=== PATIENT | female | born 1970 | race Caucasian/White ===

== ENCOUNTER 2019-10-15 09:02 | Emergency (ER) | payer OTHER ==
[~2019-10-15] VITALS: Ht 154.9 cm; Wt 63.5 kg
[~2019-10-15 09:02] MED LIST: BACTRIM DS TAB1 EACH PO; MACROBID 100 M100 M1 PO; NOHOMEMEDICATIONS; NORCO 5-325 TA1 EACH PO; PYRIDIUM100 MG PO
[2019-10-15 10:02] LABS: BASOPHILS 0.3 % (0.0-2.0)
[2019-10-15 10:03] LABS: ABSOLUTE NEUTROPHILS 9.8 thou/uL (1.4-8.2); EOSINOPHILS 0.4 % (0.0-3.0); HEMATOCRIT 39.6 % (37.0-47.0); HEMOGLOBIN 13.6 gm/dL (12.0-15.0); LYMPHOCYTES 9.8 % (24.0-44.0); MCH 39.3 pg (26.0-34.0); MCHC 34.3 g/dL (28.0-37.0); MCV 114.8 fL (80.0-100.0); MONOCYTES 6.2 % (1.0-8.0); PLATELET COUNT 271 thou/uL (150-400); POLYS 83.3 % (36.0-66.0); RBC 3.45 mil/uL (4.20-5.00); RDW 14.9 % (10.5-14.5); WBC 11.8 thou/uL (4.0-11.0)
[2019-10-15 10:22] LABS: CALCIUM 9.1 mg/dL (8.5-10.1); CREATININE 0.4 mg/dL (0.6-1.0); POTASSIUM 3.1 mmol/L (3.5-5.1)
[2019-10-15 10:27] LABS: TOTAL BILIRUBIN 1.2 mg/dL (0.2-1.0); TOTAL PROTEIN 7.6 g/dL (6.4-8.2)
[2019-10-15 11:11] LABS: MACROCYTES 3+
[2019-10-15 11:44] LABS: URINE BILIRUBIN NEGATIVE (Negative); URINE BLOOD NEGATIVE (Negative); URINE CLARITY CLEAR; URINE COLOR YELLOW; URINE GLUCOSE-RANDOM* NEGATIVE (Negative); URINE KETONES 1+ (Negative); URINE LEUKOCYTES-REFLEX TRACE (Negative); URINE PROTEIN (DIPSTICK) NEGATIVE (Negative)
[2019-10-15 11:48] LABS: URINE NITRITE-REFLEX POSITIVE (Negative)
[2019-10-15 11:55] LABS: CASTS None Seen /LPF (None Seen); SQUAMOUS 4-10 Moderate /LPF (0-3)
[2019-10-15 11:56] LABS: BACTERIA-REFLEX >30 Many /HPF (None Seen); CRYSTALS None Seen /LPF (None Seen); URINE RBC None Seen /HPF (0-2); URINE WBC-REFLEX 0-5 Rare /HPF (0-5)
[2019-10-15 12:03] LABS: AMP/METHAMP Negative (Negative); BARBITURATES Negative (Negative); BENZODIAZEPINES Negative (Negative); COCAINE Negative (Negative); METHADONE Negative (Negative); OPIATES Negative (Negative); PCP Negative (Negative)
[2019-10-15] MEDS ORDERED: ONDANSETRON ODT8 MG PO (12:38)
[2019-10-15] MEDS ORDERED: TRAMADOL 50 MG50 MG PO (12:38)
[2019-10-15] MEDS ORDERED: POTASSIUM20 PO (12:38)
[2019-10-15 12:55] VITALS: BP 105/78
== END 2019-10-15 12:55 | disposition home or self-care (01) ==
LOC: ER 09:02
PROVIDERS: Emergency Medicine
DX: R10.84 Generalized abdominal pain (principal); K76.9 Liver disease, unspecified; R11.2 Nausea with vomiting, unspecified; E87.6 Hypokalemia; D53.9 Nutritional anemia, unspecified; F17.210 Nicotine dependence, cigarettes, uncomplicated; Z88.6 Allergy status to analgesic agent

== ENCOUNTER 2019-10-19 08:18 | Inpatient (IN) | payer OTHER ==
[~2019-10-19] VITALS: Ht 154.9 cm; Wt 67.6 kg
--- NOTE | ~2019-10-19 | HC ---
[facility] [place] [address] CONSULTATION Name: AMELIA MIR Room #: 201-P ADM IN ..#: [id number] Admission: 10/19/19 Attend Phys: Jr Mercedes MD Discharge: Date of : 66 Report #: [id number] THIS REPORT FOR: cc: [facility] - Luz family physician/PCP [place] - Luz family physician/PCP Chintan Adkins MD ~ CC: [facility] physician/PCP Jr Mercedes DATE OF SERVICE: 10/19/2019 HISTORY OF PRESENT ILLNESS: This 48-year-old female patient who was seen by me earlier today at the request of Emergency Room physician as well as admitting physician. I saw the patient, but no official consult was put until this evening and I could not put in the orders in. I saw the patient in the Emergency Room and she has indicated that she had persistent nausea and vomiting. She had an episode of diplopia. When she had diplopia, she had some blurred vision. She closed her 1 eye, then it became better. Now, she does not have any symptoms in that regard. She had a pretty persistent nausea and vomiting for some time. She says she drinks alcohol very rarely, but has drank alcohol in the past, but she still has a pretty significant macrocytosis in spite of the fact that her vitamin B12 is normal. Her AST and alkaline phosphatase is also high, but not very high. REVIEW OF SYSTEMS: Difficult to get in this patient. She has a history of nausea and vomiting. She had some poorly defined tingling and numbness. She also had some problem with balance. She also has GI abnormalities in the liver for which GI is being consulted and it is a hepatic lesion and they are working her up in that regard. This was a relevant 14-point review of system. PAST MEDICAL HISTORY: Negative for any stroke. FAMILY HISTORY: Negative for any early age stroke. SOCIAL HISTORY: She smokes. She says she has drank alcohol in the past, but blood picture is still consistent with alcohol intake. PHYSICAL EXAMINATION: The patient's examination indicates she is alert, responsive, able to follow simple and complex command. Speech looks intact. Cranial nerve examination on my examination looks okay. I was able to have reasonably good look at the fundus and that does look unremarkable, but has noted dilated pupil and has to be confirmed. Reflexes appeared to be diminished, but position sense is present. Her strength looks more or less okay, but she looks somewhat weak, but I do not know what her baseline is. She does need a PT, OT evaluation, which has already been ordered. Pulses are palpable. Cardiac and respiratory examination is unremarkable. Blood pressure [address] [address] CONSULTATION Name: MIRAMELIA Room #: 201-P ADM IN M.R.#: [id number] Admission: 10/19/19 Attend Phys: Jr Mercedes MD Discharge: Date of : 66 Report #: [id number] is 152/96, respirations 18, pulse is 106, temperature is 98.2. She did have a CT of the head, which was unremarkable. IMPRESSION: This patient had a persistent nausea, vomiting and she had a prior history of alcohol intake at least. She has ataxia. She needs to be given thiamine. I ordered 1 dose and I ordered at IV because she is getting some GI preparation, but it can be switched to oral, but she should continue that for about at least 5 days. We need to also exclude any posterior fossa pathology. I will initially get an MRI of the brain and MRA of the head without contrast, but depending upon that we may have to do with contrast also. I did discuss with her that some problem can occur with contrast including the allergic reaction as well as irreversible dermatological reaction and she understands that. She is okay if we need to do it later on. Thank you very much for this referral and the patient was discussed with multiple consultants including the hospitalist, who is admitting the patient and Emergency Room physician. By: [id number] Chintan Adkins MD /nt
[~2019-10-19 08:18] MED LIST changes: +ONDANSETRON ODT8 MG PO; +POTASSIUM20 PO; +TRAMADOL 50 MG50 MG PO
[2019-10-19 08:26] VITALS: BP 129/84
[2019-10-19 09:22] LABS: ABSOLUTE NEUTROPHILS 6.9 thou/uL (1.4-8.2); BASOPHILS 0.3 % (0.0-2.0); EOSINOPHILS 0.4 % (0.0-3.0); HEMATOCRIT 34.5 % (37.0-47.0); LYMPHOCYTES 11.3 % (24.0-44.0); MCH 39.2 pg (26.0-34.0); MCHC 34.6 g/dL (28.0-37.0); MCV 113.1 fL (80.0-100.0); MONOCYTES 7.3 % (1.0-8.0); PLATELET COUNT 241 thou/uL (150-400); POLYS 80.7 % (36.0-66.0); RBC 3.05 mil/uL (4.20-5.00); RDW 15.5 % (10.5-14.5); WBC 8.6 thou/uL (4.0-11.0)
[2019-10-19 09:29] LABS: CALCIUM 8.6 mg/dL (8.5-10.1); CREATININE 0.4 mg/dL (0.6-1.0); MAGNESIUM 1.5 mg/dL (1.8-2.4)
[2019-10-19 10:01] LABS: MACROCYTES 2+
[2019-10-19 12:24] LABS: ALBUMIN 2.6 g/dL (3.4-5.0); DIRECT BILIRUBIN 0.4 mg/dL (<0.1-0.2); TOTAL BILIRUBIN 0.8 mg/dL (0.2-1.0); TOTAL PROTEIN 6.7 g/dL (6.4-8.2)
[2019-10-19 15:43] LABS: URINE BLOOD NEGATIVE (Negative); URINE CLARITY CLEAR; URINE COLOR YELLOW; URINE GLUCOSE-RANDOM* NEGATIVE (Negative); URINE KETONES 2+ (Negative); URINE LEUKOCYTES-REFLEX TRACE (Negative); URINE NITRITE-REFLEX NEGATIVE (Negative); URINE PROTEIN (DIPSTICK) NEGATIVE (Negative)
[2019-10-19 15:49] LABS: ICTOTEST (BILI CONFIRMATORY) Negative (Negative); URINE BILIRUBIN NEGATIVE (Negative)
[2019-10-19 18:10] VITALS: BP 144/96
[2019-10-19 18:17] VITALS: BP 148/100
[2019-10-19 18:21] LABS: TSH 4.308 uIU/mL (0.358-3.740)
[2019-10-19 18:30] VITALS: BP 152/96
[2019-10-20 00:22] VITALS: BP 167/97
[2019-10-20 04:19] LABS: HEMATOCRIT 32.1 % (37.0-47.0); HEMOGLOBIN 10.7 gm/dL (12.0-15.0); MCH 38.8 pg (26.0-34.0); MCHC 33.3 g/dL (28.0-37.0); MCV 116.5 fL (80.0-100.0); RBC 2.75 mil/uL (4.20-5.00); RDW 15.1 % (10.5-14.5); WBC 7.8 thou/uL (4.0-11.0)
[2019-10-20 04:23] LABS: CALCIUM 7.6 mg/dL (8.5-10.1); CREATININE 0.4 mg/dL (0.6-1.0); MAGNESIUM 2.2 mg/dL (1.8-2.4); POTASSIUM 3.5 mmol/L (3.5-5.1)
[2019-10-20 04:44] VITALS: BP 144/91
--- NOTE | 2019-10-20 06:42 | NUR ---
ASSESSMENTS CHARTED, MEDS CHARTED GIVEN. PATIENT RESTING IN BED DURING SHIFT. PATIENT SCHEDULED TO DISCHARGE TO [facility] TODAY. PATIENT HAD ELEVATED BLOOD PRESSURE THIS MORNING. GAVE AM BLOOD PRESSURE MEDS EARLY. PATIENT HAD LARGE BOWEL MOVEMENT RIGHT BEFORE SHIFT CHANGE THIS AM. DENIED PAIN.
--- NOTE | 2019-10-20 06:46 | NUR ---
ASSESSMENTS CHARTED, MEDS CHARTED GIVEN. PATIENT ARRIVED JUST PRIOR TO SHIFT CHANGE. PATIENT WAS SETTLED AND ADMITTED INTO COMPUTER FROM THE ED. RESTING IN BED DURING SHIFT. UP TO BATHROOM WITH GAIT BELT AND ASSIST X 1. VERY UNSTEADY. MAINTENANCE FLUIDS GIVEN DURING SHIFT. DENIED PAIN EXCEPT PAINS RELATED TO AGE. PATIENT HAS BEEN NPO SINCE MIDNIGHT FOR EGD THIS AM. FALL PRECAUTIONS IN PLACE DURING SHIFT.
[2019-10-20 08:46] VITALS: BP 148/92
[2019-10-20 11:09] VITALS: BP 135/83
--- NOTE | 2019-10-20 14:37 | NUR ---
Patient admits with weakness N/V. Patient resides in basement, inlaws live on main floor of home. 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 She has no insurance. 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 She does not drive. She does not have health insurace. Discussed med[facility]ist will assist with eval for [place] medicaid. Patient reports she may need walker for home.
[2019-10-20 15:35] VITALS: BP 126/79
[2019-10-20 19:50] VITALS: BP 140/89
--- NOTE | 2019-10-20 20:05 | NUR ---
ASSUMED CARE AT CHANGE OF SHIFT. ALERT X4, FROM HOME WITH . DENIES PAIN, DENIES SOB, UP WITH WALKER AX1, EGD COMPLETED WITH SMALL ULCER NOTED. PT LIKELY TO DC TOMORROW TO HOME WITH A WALKER PER CM. NSR ON TELE. CALLS FOR ASSSISTANCE.
--- NOTE | 2019-10-21 01:17 | NUR ---
ASSESSMENTS CHARTED, MEDS CHARTED GIVEN. PATIENT MUCH STRONGER AND MORE STABLE TONIGHT THAN LAST. EGD WAS DONE DURING THE DAY AND SMALL ULCERS WERE FOUND. EDUCATIONAL SUPPORT FOR ULCER CARE AND PREVENTION. FALL PRECAUTIONS IN PLACE DURING SHIFT, DENIED PAIN. PLAN OF CARE IS TO RETURN HOME IN THE AM.
[2019-10-21 03:30] VITALS: BP 147/80
[2019-10-21 05:58] LABS: HEMATOCRIT 31.3 % (37.0-47.0); HEMOGLOBIN 10.5 gm/dL (12.0-15.0); MCH 38.4 pg (26.0-34.0); MCHC 33.4 g/dL (28.0-37.0); RBC 2.73 mil/uL (4.20-5.00); WBC 6.2 thou/uL (4.0-11.0)
[2019-10-21 06:44] LABS: CALCIUM 8.4 mg/dL (8.5-10.1); CREATININE 0.3 mg/dL (0.6-1.0); MAGNESIUM 1.7 mg/dL (1.8-2.4); POTASSIUM 3.6 mmol/L (3.5-5.1)
[2019-10-21 08:00] VITALS: BP 147/97
[2019-10-21 09:46] LABS: % SATURATION 70 % (20-39); IRON 90 ug/dL (50-170); TIBC 128 ug/dL (250-450)
[2019-10-21 10:04] LABS: ALBUMIN 2.7 g/dL (3.4-5.0); CALCIUM 9.1 mg/dL (8.5-10.1); CREATININE 0.4 mg/dL (0.6-1.0); POTASSIUM 3.7 mmol/L (3.5-5.1); TOTAL BILIRUBIN 0.6 mg/dL (0.2-1.0); TOTAL PROTEIN 6.9 g/dL (6.4-8.2)
--- NOTE | 2019-10-21 14:06 | P ---
[facility] [place] [address] PROCEDURE REPORT Name: AMELIA MIR Christopher Room #: 201-P ADM IN M.R.#: [id number] Admission: 10/19/19 Attend Phys: Jr Mercedes MD Discharge: Date of : 66 Report #: [id number] THIS REPORT FOR: cc: [facility] - No family physician/PCP FAM - No family physician/PCP Bereket Olson MD ~ CC: [facility] physician/PCP Jr Adkins MD DATE OF SERVICE: 10/20/2019 PROCEDURE PERFORMED: Upper endoscopy with biopsies. HISTORY OF PRESENT ILLNESS: The patient is a 48-year-old female who was admitted yesterday for abdominal pain, primarily right upper quadrant, also nausea, vomiting, and diarrhea. She was seen in the Emergency Room on 10/15/2019 with similar symptoms. A CT scan of the abdomen at that time showed an abnormal liver, likely geographic fatty infiltration. She has had a previous cholecystectomy. A repeat CT was done yesterday, 3-phase, which showed normal CT angiogram of the abdomen and pelvis, no signs of mesenteric artery stenosis or ischemia, large area of geographic low density in the liver is similar since previous study, nonspecific, although suspect this is due to fatty infiltration, less likely tumor or unusual hepatitis presentation. There is a mild diffuse wall thickening throughout the colon, felt to be more artifactual from non-distention. No previous history of endoscopy. Plan is for EGD. DESCRIPTION OF PROCEDURE: The risks and benefits of the procedure were explained to the patient, those risks including but not limited to bleeding, perforation and the risk of sedation. She understood these risks and gave informed consent. Sedation was given using propofol per anesthesia. Next, using a standard Olympus upper endoscope, the scope was placed in the patient's mouth and advanced under direct vision through the esophagus, stomach, and into the second portion of the duodenum. The esophagus was normal throughout. The GE junction was normal. In the gastric body, there was a mild gastritis. In the gastric antrum, a single 5 mm clean white based ulcer was noted with mild gastritis also in the gastric antrum. Biopsies were obtained to rule out H. pylori. The duodenal bulb and first portion were normal. In the second portion, a small possible polyp was noted. This was 4 mm in size and removed with cold forceps. Also obtained today were random biopsies of the duodenum to rule out the possibility of celiac sprue. At this point, the scope was then withdrawn and the procedure terminated. The patient tolerated the procedure well. IMPRESSION: 1. Gastritis with gastric ulcer. [address] [address] PROCEDURE REPORT Name: AMELIA MIR Room #: 201-P [facility] IN ..#: [id number] Admission: 10/19/19 Attend Phys: Jr Mercedes MD Discharge: Date of : 66 Report #: [id number] 2. Small duodenal polyp. 3. Otherwise, normal upper endoscopy. RECOMMENDATIONS: 1. Await biopsy results. 2. We will start daily PPI therapy. 3. We will advance diet as tolerated. 4. I explained CT 3-phase results to the patient regarding likely fatty infiltration of the liver, although this can cause elevation in liver function tests. Doubt, this would be a cause of her other symptoms of nausea, vomiting, or abdominal pain. Her bilirubin is normal. Mild elevation in the AST and the alkaline phosphatase. We will continue to monitor her liver function tests. Thank you for allowing me to participate in her care. <ELECTRONICALLY SIGNED> By: Bereket Olson MD 10/21/19 [id number] Bereket Olson MD /nt
[2019-10-21] MEDS ORDERED: MIRALAX17 GM PO (16:32)
[2019-10-21] MEDS ORDERED: PROTONIX 20 MG20 MG PO (16:33)
[2019-10-21] MEDS ORDERED: VITAMIN B-1100 M2 PO (16:33)
[2019-10-21] MEDS ORDERED: FOLIC ACID1 MG PO (16:33)
[2019-10-21] MEDS ORDERED: VITAMIN B-125000 MCG SUBLING (16:34)
[2019-10-21] MEDS ORDERED: CEFUROXIME500 MG PO (16:38)
[2019-10-21 16:57] VITALS: BP 147/97
== END 2019-10-21 18:15 | disposition home or self-care (01) | DRG 383 ==
LOC: ER 08:18 → EROBS 16:01 → 2N 18:42
PROVIDERS: Emergency Medicine; ADMIT Internal Medicine; ATTEND Internal Medicine
PROC: 0DB98ZZ Excision of Duodenum, Via Natural or Artificial Opening Endoscopic (ICD-10-PCS; principal; 2019-10-20)
PROC: 0DB68ZX Excision of Stomach, Via Natural or Artificial Opening Endoscopic, Diagnostic (ICD-10-PCS; principal; 2019-10-20)
DX: K25.9 Gastric ulcer, unspecified as acute or chronic, without hemorrhage or perforation (principal); E43 Unspecified severe protein-calorie malnutrition; N39.0 Urinary tract infection, site not specified; K29.70 Gastritis, unspecified, without bleeding; E83.42 Hypomagnesemia; R16.0 Hepatomegaly, not elsewhere classified; B96.20 Unspecified Escherichia coli [E. coli] as the cause of diseases classified elsewhere; H53.8 Other visual disturbances; K63.5 Polyp of colon; F17.210 Nicotine dependence, cigarettes, uncomplicated; D53.9 Nutritional anemia, unspecified; E83.51 Hypocalcemia; E53.8 Deficiency of other specified B group vitamins; Z88.6 Allergy status to analgesic agent; Z90.49 Acquired absence of other specified parts of digestive tract; Z79.899 Other long term (current) drug therapy
CPT/HCPCS: 10081; 62110; 62900; 70005

== ENCOUNTER 2019-12-25 20:07 | Emergency (ER) | payer OTHER ==
[~2019-12-25] VITALS: Ht 154.9 cm; Wt 63.5 kg
[~2019-12-25 20:07] MED LIST changes: +CEFUROXIME500 MG PO; +CIPRO500 M1 PO; +DOXYCYCLINE 10100 MG PO; +FLAGYL500 M1 PO; +FOLIC ACID1 MG PO; +MIRALAX17 GM PO; +NYSTATIN100000 UNI SW&SWALLOW; +OMEPRAZOLE 20 M20 M1 PO; +PROTONIX 20 MG20 MG PO; +PROTONIX40 M4 PO; +VITAMIN B-1100 M2 PO; +VITAMIN B-125000 MCG SUBLING
[2019-12-25 22:08] LABS: ABSOLUTE NEUTROPHILS 3.9 thou/uL (1.4-8.2); BASOPHILS 0.5 % (0.0-2.0); EOSINOPHILS 0.9 % (0.0-3.0); HEMATOCRIT 29.7 % (37.0-47.0); HEMOGLOBIN 9.9 gm/dL (12.0-15.0); LYMPHOCYTES 22.5 % (24.0-44.0); MCH 31.9 pg (26.0-34.0); MCHC 33.2 g/dL (28.0-37.0); MCV 95.8 fL (80.0-100.0); MONOCYTES 9.2 % (1.0-8.0); PLATELET COUNT 129 thou/uL (150-400); POLYS 66.9 % (36.0-66.0); RDW 16.4 % (10.5-14.5); WBC 5.9 thou/uL (4.0-11.0)
[2019-12-25 22:10] LABS: ICTOTEST (BILI CONFIRMATORY) Negative (Negative); URINE BILIRUBIN 1+ (Negative); URINE BLOOD NEGATIVE (Negative); URINE CLARITY CLEAR; URINE COLOR YELLOW; URINE GLUCOSE-RANDOM* TRACE (Negative); URINE KETONES NEGATIVE (Negative); URINE LEUKOCYTES-REFLEX NEGATIVE (Negative); URINE NITRITE-REFLEX POSITIVE (Negative); URINE PROTEIN (DIPSTICK) 1+ (Negative); URINE SPECIFIC GRAVITY 1.025 (1.005-1.035); URINE UROBILINOGEN 0.2 E.U./dl (0.2-1.0)
[2019-12-25 22:19] LABS: CALCIUM 8.5 mg/dL (8.5-10.1); CREATININE 0.6 mg/dL (0.6-1.0)
[2019-12-25 22:25] LABS: ALBUMIN 2.2 g/dL (3.4-5.0); TOTAL BILIRUBIN 0.7 mg/dL (0.2-1.0); TOTAL PROTEIN 5.6 g/dL (6.4-8.2)
[2019-12-25 22:31] LABS: BACTERIA-REFLEX 1-9 Few /HPF (None Seen); CASTS None Seen /LPF (None Seen); CRYSTALS None Seen /LPF (None Seen); SQUAMOUS 0-3 Few /LPF (0-3); URINE RBC None Seen /HPF (0-2); URINE WBC-REFLEX None Seen /HPF (0-5)
[2019-12-26 05:49] VITALS: BP 100/82
--- NOTE | 2019-12-27 06:27 | NUR ---
[facility] RESULT CALLED
== END 2019-12-26 05:52 | disposition short-term general hospital (02) ==
LOC: ER 20:07
PROVIDERS: Student in an Organized Health Care Education/Training Program
DX: N39.0 Urinary tract infection, site not specified (principal); R53.1 Weakness; H54.7 Unspecified visual loss; F17.210 Nicotine dependence, cigarettes, uncomplicated; Z90.49 Acquired absence of other specified parts of digestive tract; Z79.899 Other long term (current) drug therapy; Z88.6 Allergy status to analgesic agent